=== PATIENT | female | born 1985 | race Caucasian/White ===

== ENCOUNTER → 2017-05-14 | Outpatient (CLI) | payer OTHER ==
--- NOTE | 2017-05-14 10:24 | REP ---
MAXILLOFACIAL CT WITHOUT CONTRAST: HISTORY: Chronic sinusitis. A cystic lesion is present in the left maxilla. This involves the first and second molar teeth. The cyst measures 1.7 cm in transverse by 1.7 cm in AP by 1.5 cm cephalocaudal dimensions. Root canals are present in the first and second molar teeth. There is superior extension of the cyst into the left maxillary sinus. Very minimal mucosal thickening is present in the left maxillary sinus. The remaining sinuses are clear. The osteomeatal units are patent. The middle and inferior nasal turbinates are partially paradoxical. There is very minimal deviation of the nasal septum to the right. A spur is present arising from the right side of the nasal septum. The cribriform plate, medial luz of the orbits, and optic canals are intact. The carotid canals form a segment of the posterolateral luz of the sphenoid sinus. IMPRESSION: 1. Very minimal left maxillary sinus mucosal thickening. 2. There is a 1.7 cm cystic lesion involving the posterior left maxilla in the region of the left first and second molar teeth. This may represent a radicular cyst. Signed by Tima Medel MD 05/14/2017 10:31 A
== END ==
LOC: M RAD 09:42
PROVIDERS: ATTEND Otolaryngology
DX: J32.4 Chronic pansinusitis (principal); K13.79 Other lesions of oral mucosa

== ENCOUNTER → 2018-04-15 | Outpatient (CLI) | payer OTHER | LOC: M RAD 12:18 | DX: E05.00 Thyrotoxicosis with diffuse goiter without thyrotoxic crisis or storm (principal) | CPT/HCPCS: 78012 ==

== ENCOUNTER → 2018-05-16 | Outpatient (CLI) | payer OTHER | LOC: M RAD 11:21 | DX: E05.00 Thyrotoxicosis with diffuse goiter without thyrotoxic crisis or storm (principal) ==

== ENCOUNTER → 2024-04-09 | Outpatient (CLI) | payer OTHER | LOC: M WHC 14:03 | PROVIDERS: ATTEND Family Medicine | DX: Z12.31 Encounter for screening mammogram for malignant neoplasm of breast (principal); Z80.3 Family history of malignant neoplasm of breast ==